=== PATIENT | female | born 2000 | race Caucasian/White ===

== ENCOUNTER 2022-05-31 14:47 | Emergency (ER) | payer OTHER ==
--- OUTSIDE RECORDS SUMMARY | 2022-05-31 14:50 | XMS REPORT | Continuity of Care Document ---
:2000 Author Organization [facility] t Address [address] [place] [address] [place] [id number] Care Team Providers Name Role Phone CASA FRANCO M.D. Attending Clinician Unavailable BILL FRANCOIS M.D. Attending Clinician Unavailable TIFFANIE PATTERSON M.D. Attending Clinician Unavailable CORWIN ECHEEVRRIA M.D. Attending Clinician Unavailable Problems Condition Condition Condition Status Onset Resolution Last Treating Co mments Source Name Details Category Date Date Treatment Clinician Date Bipolar Bipolar Problem Active [facility] affective affective HL7.CCDAR2 Physici disorder disorder ans Social Social Problem Active [facility] anxiety anxiety HL7.CCDAR2 Phys ici disorder disorder ans Mood Mood Problem Active [facility] disorder disorder HL7.CCDAR2 Ph ysici ans History of History of Problem Resolve [facility] Depression Depression HL7.CCDAR2 d Physici , major, , major, ans single single episode, episode, moderate moderate Allergies, Adverse Reactions, Alerts This patient has no known allergies or adverse reactions. Family History Family Member Diagnosis Comments Start Date Stop Date Source Mother Family history of [facility] Depression Mother Family history of Anxiety [facility] Social History Smoking Status Start Date Stop Date Source Never smoker [facility] Medications Ordered Filled Start Stop Current Ordering Indication Dosage Frequency Signature Comments Components Source Medication Medication Date Date Medication? Clinician (SIG) Name Name BusPIRone BusPIRone 2017-07 Yes CASA TAKE ONE [facility] HCl - 10 MG HCl - 10 MG 0-04 TANNU M.D. (1) [facility]ici Oral Tablet Oral Tablet 08:22: TABLET(S) ans 20 BY MOUTH ONCE A DAY. due for follow up Sertraline Sertraline 2015-07 Yes CASA 1 QD TAKE 1.5 [facility] HCl - 50 MG HCl - 50 MG 0-24 TANNU M.D. TABLET(S) Physici Oral Tablet Oral Tablet 00:00: BY MOUTH ans 00 ONCE A DAY. due for follow up appt LamoTRIgine LamoTRIgine 2016-0 Yes CASA 1 QD TAKE 1 [facility] 100 MG Oral 100 MG Oral 8-17 TANNU M.D. TABLET Physici Tablet Tablet 00:00: DAILY. ans 00 Vital Signs Vital Name Observation Time Observation Value Comments Source BP Systolic 2018-01-07 11:32:00 103 mm[Hg] Location: RUE; [facility] Position: Sitting BP Diastolic 2018-01-07 11:32:00 64 mm[Hg] Location: RUE; [facility] Position: Sitting Height 2018-01-07 11:32:00 63 [in_us] [facility] Weight 2018-01-07 11:32:00 113 [lb_av] [facility] Body Mass Index 2018-01-07 11:32:00 20.02 kg/m2 [facility] Calculated Heart Rate 2018-01-07 11:32:00 96 /min [facility] BP Systolic 2017-09-24 10:05:00 94 mm[Hg] Location: RUE; [facility] Position: Sitting BP Diastolic 2017-09-24 10:05:00 63 mm[Hg] Location: RUE; [facility] Position: Sitting Height 2017-09-24 10:05:00 63 [in_us] [facility] Weight 2017-09-24 10:05:00 119 [lb_av] [facility] Body Mass Index 2017-09-24 10:05:00 21.08 kg/m2 [facility] Calculated Heart Rate 2017-09-24 10:05:00 90 /min [facility] BP Systolic 2017-07-24 15:10:00 93 mm[Hg] Location: LUE; [facility] Position: Sitting BP Diastolic 2017-07-24 15:10:00 59 mm[Hg] Location: LUE; [facility] Position: Sitting Height 2017-07-24 15:10:00 63 [in_us] [facility] Weight 2017-07-24 15:10:00 109 [lb_av] [facility] Body Mass Index 2017-07-24 15:10:00 19.31 kg/m2 [facility] Calculated Temperature 2017-07-24 15:10:00 98.5 [degF] Method: Oral [facility] Heart Rate 2017-07-24 15:10:00 96 /min [facility] O2 SAT 2017-07-24 15:10:00 100 % Source: [facility] Procedures This patient has no known procedures. Encounters Start End Encounter Admission Attending Care Care Encounter Source Date/Time Date/Time Type Type Clinicians Facility Department ID 2018-04-07 2018-04-[id number] [place] 13:30:00 13:30:00 t; CASA FRANCO Phys ici NILESH, M.D. ans M.D. 2018-01-07 2018-01-07 [id number] [place] 11:30:00 11:30:00 t; CASA FRANCO Phys ici NILESH, M.D. ans M.DCat 2018-01-07 2018-01-07 [facility] [id number] [place] 11:30:00 11:30:00 t; CASA FRANCO Phys ici NILESH, M.D. ans M.D. 2017-09-24 2017-09-24 [facility] [id number] [place] 10:00:00 10:00:00 t; CASA FRANCO Phys ici NILESH, M.D. ans M.DCat 2017-09-18 2017-09-18 [facility] [id number] [place] 11:30:00 11:30:00 t; CASA FRANCO Phys ici NILESH, M.D. ans M.DCat 2017-07-24 2017[facility] [id number] [place] 10:00:00 10:00:00 t; CASA FRANCO Phys ici NILESH, M.D. ans M.D. 2017-04-24 2017-04-24 [facility] [id number] [place] 10:00:00 10:00:00 t; CASA FRANCO Phys ici NILESH, M.D. ans M.DCat 2017-01-26 2017-01-26 [facility] [id number] [place] 11:00:00 11:00:00 t; July KHAN i, M.D. ans CHAROO, M.D. 2016-12-29 2016-12-29 [facility] PRISCILA, UTP UTP [id number] [place] 10:00:00 10:00:00 t; July KHAN i, M.D. ans CHAROO, M.D. 2016-08-13 2016-08-13 [facility] PRISCILA, UTP UTP [id number] [place] 14:00:00 14:00:00 t; July KHAN i, M.D. ans CHAROO, M.D. 2016-06-16 2016[facility]06-16 [facility] [id number] [place] 15:30:00 15:30:00 t; July KHAN i, M.D. ans CHAROO, M.D. 2016-04-28 2016-04-28 [facility] PRISCILA, UTP UTP [id number] [place] 14:30:00 14:30:00 t; July KHAN i, M.D. ans CHAROO, M.D. 2016-03-19 2016-03-19 [facility] PRISCILA, [facility] UTP [id number] [place] 14:30:00 14:30:00 t; July KHAN i, M.D. ans CHAROO, M.D. 2016-02-20 2016-02-20 [facility] TIFFANIE PATTERSON, [facility] UTP [id number] [place] 09:00:00 09:00:00 t; [place] PATTERSON i, ans M.D. 2016-01-22 2016-01-22 [facility] TIFFANIE PATTERSON, [facility] UTP [id number] [place] 13:30:00 13:30:00 t; [place] PATTERSON i, ans M.D. 2015-09-04 2015-09-04 [facility] JUWAN, [facility] UTP [id number] [place] 16:00:00 16:00:00 t; CORWIN ECHEVERRIA Ph ysici MAHWISH, M.D. ans M.D. 2015-07-31 2015-07-31 [facility] JUWAN, UTP UTP [id number] [place] 10:30:00 10:30:00 t; CORWIN ECHEVERRIA, Chandana StephensonD. santiago Petty. Results This patient has no known results.
[2022-05-31] MEDS ORDERED: IBUPROFEN 200 MG TAB PO ONE (15:15)
[2022-05-31] MEDS ORDERED: IBUPROFEN 400 MG TAB ONE (15:15)
[2022-05-31] MEDS ORDERED: AMOX/K CLAV 875 MG TAB ONE (15:16)
--- NOTE | 2022-05-31 15:19 | EDPHYS ---
Physician Documentation [facility] Name: Iveth Hernandez Age: 21 yrs Sex: Female : 2000 Arrival Date: 05/31/2022 Time: 14:48 Bed [id number] Private MD: ED Physician Colin Metz HPI: 05/31 15:11 This 21 yrs old Female presents to ER via Unassigned with complaints of Fever, Sore kb Throat. 15:15 The patient presents with sore throat. The patient describes throat pain as constant. kb Onset: The symptoms/episode began/occurred 5 day(s) ago. Severity of symptoms: At their worst the symptoms were moderate, in the emergency department the symptoms are unchanged. Modifying factors: The symptoms are alleviated by nothing, the symptoms are aggravated by swallowing, Patient's oral intake status: good. Associated signs and symptoms: Pertinent positives: fever, Sore throat. The patient has not experienced similar symptoms in the past. The patient has not recently seen a physician. Pt reports sore throat and fever for 4-5 days. States it isn't getting any better so she wanted to get it looked at. RECREATION COORDINATOR: 15:11 LMP 05/06/2022 kb3 Historical: - Allergies: 15:11 No Known Allergies; kb3 - Home Meds: 15:11 sertraline 100 mg oral tab 1 tab once daily [Active]; MICHEL (28) 3-0.02 mg oral tab 1 tab kb3 once daily [Active]; Latuda 40 mg oral tab 1 tab once daily [Active]; - PMHx: 15:11 Depressive disorder; kb3 - PSHx: 15:11 None; kb3 - Immunization history:: Adult Immunizations up to date, Client reports receiving the 2nd dose of the Covid vaccine, Last tetanus immunization: up to date. - Social history:: Smoking status: Patient denies any tobacco usage or history of. ROS: 15:11 Respiratory: Negative for shortness of breath, cough, wheezing, and pleuritic chest kb pain. 15:11 Constitutional: Positive for fever. 15:11 ENT: Positive for sore throat. 15:11 All other systems are negative. Exam: 15:16 Constitutional: This is a well developed, well nourished patient who is awake, alert, kb and in no acute distress. Head/Face: Normocephalic, atraumatic. Cardiovascular: Regular rate and rhythm with a normal S1 and S2. No gallops, murmurs, or rubs. No pulse deficits. Respiratory: Respirations even and unlabored. No increased work of breathing. Talking in full sentences Skin: Warm, dry with normal turgor. Normal color. MS/ Extremity: Pulses equal, no cyanosis. Neurovascular intact. Full, normal range of motion. Neuro: Awake and alert, GCS 15, oriented to person, place, time, and situation. Moves all extremities. Normal gait. Psych: Awake, alert, with orientation to person, place and time. Behavior, mood, and affect are within normal limits. 15:16 ENT: Posterior pharynx: Airway: normal, no evidence of obstruction, Tonsils: bilaterally enlarged, with erythema, with exudate, Uvula: normal, midline, swelling, that is mild, erythema, that is moderate, exudate, that is moderate. Vital Signs: 15:09 BP 117 / 95; Pulse 141; Resp 20; Temp 102; Pulse Ox 100% ; Weight 52.16 kg; Height 5 kb3 ft. 3 in. (160.02 cm); Pain 5/10; 15:09 Body Mass Index 20.37 (52.16 kg, 160.02 cm) kb3 MDM: 15:10 Patient medically screened. kb 15:16 Data reviewed: vital signs, nurses notes. Data interpreted: Pulse oximetry: on room air kb is 100 %. Interpretation: normal. Counseling: I had a detailed discussion with the patient and/or guardian regarding: the historical points, exam findings, and any diagnostic results supporting the discharge/admit diagnosis, the need for outpatient follow up, a family practitioner, to return to the emergency department if symptoms worsen or persist or if there are any questions or concerns that arise at home. Administered Medications: 15:17 Drug: Ibuprofen 600 mg Route: PO; kb3 15:31 Follow up: Response: No adverse reaction kb3 15:17 Drug: Augmentin (Amoxicillin-Clavulanate) 875 mg Route: PO; kb3 15:31 Follow up: Response: No adverse reaction kb3 Disposition: 15:17 Co-signature as Attending Physician, Colin Metz DO I was immediately available on-site ms3 in the Emergency Department for consultation in the care of the patient. Disposition Summary: 05/31/22 15:18 Discharge Ordered Location: Home kb Condition: Stable kb Diagnosis - Streptococcal pharyngitis kb Followup: kb - With: Emergency Department - When: As needed - Reason: Worsening of condition Followup: kb - With: Private Physician - When: 2 - 3 days - Reason: Recheck today's complaints, Continuance of care, Re-evaluation by your physician Discharge Instructions: - Discharge Summary Sheet kb - Strep Throat, Adult, [id number] kb - Form - Return To Work kj1 Forms: - Medication Reconciliation Form kb - Thank You Letter kb - Antibiotic Education kb - Prescription Opioid Use kb - Work release form kj1 Prescriptions: - Augmentin 875-125 mg Oral Tablet - take 1 tablet by ORAL route every 12 hours for 10 days; 20 tablet; Refills: 0, kb Product Selection Permitted Signatures: Anna Marie Cummings, JAIME WINCHESTER-Colin Juan DO DO ms3 Alla Blancas, RN RN kb3
--- NOTE | 2022-05-31 15:19 | ER ---
Nurse's Notes [facility] Name: Iveth Hernandez Age: 21 yrs Sex: Female : 2000 Arrival Date: 05/31/2022 Time: 14:48 Bed IW4 Private MD: Diagnosis: Streptococcal pharyngitis Presentation: 05/31 15:09 Chief complaint: Patient states: Pt reports fever and sore throat x4 days. Coronavirus kb3 screen: Vaccine status: Patient reports receiving the 2nd dose of the covid vaccine. Client denies travel out of the [place] in the last 14 days. Ebola Screen: Patient negative for fever greater than or equal to 101.5 degrees Fahrenheit, and additional compatible Ebola Virus Disease symptoms Patient denies exposure to infectious person. Patient denies travel to an Ebola-affected area in the 21 days before illness onset. Initial Sepsis Screen: Does the patient meet any 2 criteria? Temp <36.0*C (96.8*F)) or > 38.3*C (100.9*F). HR > 90 bpm. Yes Does the patient have a suspected source of infection? Yes: Other: Strep throat. Risk Assessment: Do you want to hurt yourself or someone else? Patient reports no desire to harm self or others. Onset of symptoms was May 27, 2022. 15:09 Method Of Arrival: Ambulatory kb3 15:09 Acuity: DARY 4 kb3 Triage Assessment: 15:11 General: Appears in no apparent distress. ill, Behavior is calm, cooperative. Pain: kb3 Complains of pain in uvula, left aspect of posterior pharynx and right aspect of posterior pharynx Pain does not radiate. Pain currently is 5 out of 10 on a pain scale. EENT: Throat is reddened has patchy exudate has enlarged tonsils bilaterally. EVENT HOST: 15:11 LMP 05/06/2022 kb3 Historical: - Allergies: 15:11 No Known Allergies; kb3 - Home Meds: 15:11 sertraline 100 mg oral tab 1 tab once daily [Active]; MICHEL (28) 3-0.02 mg oral tab 1 tab kb3 once daily [Active]; Latuda 40 mg oral tab 1 tab once daily [Active]; - PMHx: 15:11 Depressive disorder; kb3 - PSHx: 15:11 None; kb3 - Immunization history:: Adult Immunizations up to date, Client reports receiving the 2nd dose of the Covid vaccine, Last tetanus immunization: up to date. - Social history:: Smoking status: Patient denies any tobacco usage or history of. Screenin:17 Abuse screen: Denies threats or abuse. Denies injuries from another. Nutritional kb3 screening: No deficits noted. Tuberculosis screening: No symptoms or risk factors identified. Fall Risk None identified. Assessment: 15:17 General: see triage note. Respiratory: No deficits noted. Airway is patent Respiratory kb3 effort is even, unlabored, Breath sounds are clear. Vital Signs: 15:09 BP 117 / 95; Pulse 141; Resp 20; Temp 102; Pulse Ox 100% ; Weight 52.16 kg; Height 5 kb3 ft. 3 in. (160.02 cm); Pain 5/10; 15:09 Body Mass Index 20.37 (52.16 kg, 160.02 cm) kb3 ED Course: 14:48 Patient arrived in ED. as 14:48 Anna Marie Cummings [facility]-C [facility] kb 14:48 Colin Metz DO is Attending Physician. kb 15:11 Triage completed. kb3 15:11 Arm band placed on left wrist. kb3 15:17 Patient has correct armband on for positive identification. kb3 15:17 No provider procedures requiring assistance completed. Patient did not have IV access kb3 during this emergency room visit. 15:26 Alla Blancas, RN is Primary Nurse. kb3 Administered Medications: 15:17 Drug: Ibuprofen 600 mg Route: PO; kb3 15:31 Follow up: Response: No adverse reaction kb3 15:17 Drug: Augmentin (Amoxicillin-Clavulanate) 875 mg Route: PO; kb3 15:31 Follow up: Response: No adverse reaction kb3 Medication: 15:17 VIS not applicable for this client. kb3 Outcome: 15:18 Discharge ordered by . kb 15:31 Discharged to home ambulatory. kb3 15:31 Condition: stable 15:31 Discharge instructions given to patient, Instructed on discharge instructions, follow up and referral plans. medication usage, Demonstrated understanding of instructions, follow-up care, medications, Prescriptions given X 1. 15:32 Patient left the ED. kb3 Signatures: Anna Marie Cummings FNP-C BUCKET OPERATOR-Ckb Erin Zavaleta as Alla Blancas, RN RN kb3
[2022-05-31 15:37] VITALS: BP 117/95; TEMP 102; O2SAT 100
== END 2022-05-31 15:32 | disposition home or self-care (01) ==
LOC: ER 14:47
DX: J02.0 Streptococcal pharyngitis (principal)
CPT/HCPCS: 99283